=== PATIENT | female | born 1975 | race Caucasian/White ===

== ENCOUNTER 2016-07-21 09:27 | Emergency (ER) | payer BC, OTHER ==
[~2016-07-21] VITALS: Ht 165.1 cm; Wt 74.4 kg
[~2016-07-21 09:27] MED LIST: ADDERALL10 MG PO; ANTABUSE250 MG PO; ATIVAN2 MG PO; BUSPAR15 MG PO; BUSPAR5 MG PO; CAMPRAL333 MG PO; CLONIDINE HCL0.1 MG PO; DEPADE50 MG PO; FLEXERIL10 MG PO; Folvite PO; GEODON40 MG PO; HYDROXYZINE HCL25 MG PO; Habitrol,Nicoderm CQ TD; Librium PO; MEDERMA TP; MELOXICAM7.5 MG PO; MOTRIN600 MG PO; Naprosyn PO; Percocet 5/325,Endoc PO; Proventil,Ventolin H IH; THIAMINE HCL100 MG PO; TOPAMAX200 MG PO; TOPAMAX50 MG PO; TOPIRAMATE200 MG PO; Vyvanse PO; ZOLOFT100 MG PO; Zoloft PO
[2016-07-21 09:59] VITALS: BP 116/88
== END 2016-07-21 10:00 | disposition home or self-care (01) ==
LOC: EME → EDBD 09:27 → EME 10:00
DX: F10.129 Alcohol abuse with intoxication, unspecified (principal); F17.200 Nicotine dependence, unspecified, uncomplicated
CPT/HCPCS: 99281; 99283

== ENCOUNTER 2016-11-23 23:55 | Emergency (ER) | payer OTHER ==
[~2016-11-23] VITALS: Ht 157.5 cm; Wt 60.0 kg
[2016-11-24 01:03] VITALS: BP 120/81
== END 2016-11-24 01:03 | disposition home or self-care (01) ==
LOC: EME 23:55
DX: F10.129 Alcohol abuse with intoxication, unspecified (principal); F17.200 Nicotine dependence, unspecified, uncomplicated
CPT/HCPCS: 99281; 99283

== ENCOUNTER 2017-07-28 11:21 | Inpatient (IN) | payer OTHER ==
[~2017-07-28] VITALS: Ht 167.6 cm; Wt 72.3 kg
[2017-07-28 12:02] LABS: BASOPHIL (%) 0.3 % (0-1); EOSINOPHIL (%) 0.4 % (0-5); HEMATOCRIT 36.3 % (36.0-46.0); HEMOGLOBIN 11.5 G/DL (11.9-15.5); IMMATURE GRANULOCYTE (%) 0.2 % (0.0-0.7); LYMPHOCYTE (%) 17.8 % (15-42); LYMPHOCYTE COUNT 1.6 K/uL (1.0-2.8); MCH 25.2 PG (29.0-34.0); MCHC 31.7 G/DL (30.0-36.0); MCV 79.4 FL (83-99); MONOCYTE COUNT 0.6 K/uL (0-0.8); NEUTROPHIL (%) 74.3 % (45-76); NEUTROPHIL COUNT 6.8 K/uL (1.8-6.4); PLATELET COUNT 388 K/uL (156-360); RBC DIS.WIDTH-CV 17.9 % (11.8-14.6); RBC DIS.WIDTH-SD 50.8 % (39-53); RED BLOOD COUNT 4.57 M/uL (3.80-5.20); WHITE BLOOD COUNT 9.2 K/uL (4.1-10.2)
[2017-07-28 12:05] LABS: APPEARANCE SL.HAZY ((CLEAR)); BILIRUBIN NEGATIVE; BLOOD LARGE; COLOR YELLOW ((YELLOW)); GLUCOSE (STRIP) NEGATIVE; KETONES NEGATIVE; LEUKOCYTES NEGATIVE; NITRITE NEGATIVE; PROTEIN (STRIP) 30; SPECIFIC GRAVITY 1.018 (1.000-1.030)
[2017-07-28 12:12] LABS: CHLORIDE 104 mEq/L (99-109); POTASSIUM 3.8 mEq/L (3.7-5.4); SODIUM 137 mEq/L (136-147)
[2017-07-28 12:14] LABS: GLUCOSE 101 mg/dL (70-99)
[2017-07-28 12:17] LABS: SERUM ETHYL ALCOHOL < 10 mg/dL
[2017-07-28 12:18] LABS: CREATININE 0.8 mg/dL (0.6-1.3); GFR ESTIMATE (CALCULATED) > 59 mL/min/
[2017-07-28 12:19] LABS: UREA NITROGEN (BUN) 8 mg/dL (9-23)
[2017-07-28 12:27] LABS: QUANTITATIVE HCG < 4.0 MIU/ML
[2017-07-28 12:33] LABS: BACTERIA RARE /HPF; CALCIUM OXALATE CRYSTALS 4+ /HPF; EPITHELIAL CELLS 1+ /HPF; HYALINE CASTS 0-5 /LPF; MUCUS 3+ /LPF; RED BLOOD CELLS TNTC /HPF (0-5); WHITE BLOOD CELLS 0-5 /HPF (0-5)
[2017-07-28 12:49] LABS: AMPHETAMINE NEGATIVE (500 ng/mL); BARBITURATES NEGATIVE (200 ng/mL); BENZODIAZEPINES NEGATIVE (150 ng/mL); BUPRENORPHINE NEGATIVE (10 ng/mL); COCAINE NEGATIVE (150 ng/mL); METHADONE NEGATIVE (200 ng/mL); METHAMPHETAMINE NEGATIVE (500 ng/mL); OPIATES (MORPHINE) NEGATIVE (100 ng/mL); OXYCODONE NEGATIVE (100 ng/mL); PHENCYCLIDINE NEGATIVE (25 ng/mL); PROPOXYPHENE NEGATIVE (300 ng/mL); THC CANNABINOIDS NEGATIVE (50 ng/mL); TRICYCLIC ANTIDEPRESSANTS NEGATIVE (300 ng/mL)
[2017-07-28 16:26] VITALS: BP 160/79
[2017-07-28 16:49] VITALS: BP 160/79
[2017-07-28] MEDS ORDERED: MOTRIN800 MG PO (17:52)
[2017-07-29 08:29] VITALS: BP 111/51
[2017-07-29 15:31] VITALS: BP 107/57
[2017-07-30 07:52] VITALS: BP 123/57
[2017-07-30 16:37] VITALS: BP 133/62
[2017-07-31 08:05] VITALS: BP 95/62
[2017-07-31 16:04] VITALS: BP 120/64
[2017-08-01 07:55] VITALS: BP 94/52
[2017-08-01] MEDS ORDERED: Thiamine,Vitamin B1 PO (09:26)
[2017-08-01] MEDS ORDERED: HYDROXYZINE PAM25 MG PO (09:26)
[2017-08-01] MEDS ORDERED: FOLIC ACID1 MG PO (09:26)
[2017-08-01] MEDS ORDERED: CAMPRAL333 MG PO (09:26)
[2017-08-01] MEDS ORDERED: GEODON40 MG PO (09:26)
== END 2017-08-01 16:32 | disposition home or self-care (01) | DRG 881 ==
LOC: EME 11:21 → 1WEST 14:32 → EDOF 14:32 → ENRESERV 15:59 → 1WEST 16:11
PROVIDERS: Emergency Medicine
PROC: HZ2ZZZZ Detoxification Services for Substance Abuse Treatment (ICD-10-PCS; principal; 2017-07-28)
DX: F32.9 Major depressive disorder, single episode, unspecified (principal); F41.9 Anxiety disorder, unspecified; F10.24 Alcohol dependence with alcohol-induced mood disorder; F10.239 Alcohol dependence with withdrawal, unspecified; R45.851 Suicidal ideations; F17.200 Nicotine dependence, unspecified, uncomplicated; R41.9 Unspecified symptoms and signs involving cognitive functions and awareness; S06.9X0S Unspecified intracranial injury without loss of consciousness, sequela; Z91.19 Patient's noncompliance with other medical treatment and regimen
CPT/HCPCS: 80048; 81003; 84702; 85025; 90837; 97150 GO; 97165 GO; 99281; 99285; G0480; Q0177

== ENCOUNTER 2017-08-01 18:03 | Emergency (ER) | payer OTHER ==
[~2017-08-01] VITALS: Ht 165.1 cm; Wt 74.0 kg
[~2017-08-01 18:03] MED LIST changes: +FOLIC ACID1 MG PO; +HYDROXYZINE PAM25 MG PO; +MOTRIN800 MG PO; +Thiamine,Vitamin B1 PO
[2017-08-01 19:24] VITALS: BP 138/73
== END 2017-08-01 19:38 | disposition home or self-care (01) ==
LOC: EME 18:03
DX: F10.10 Alcohol abuse, uncomplicated (principal); F32.9 Major depressive disorder, single episode, unspecified; F17.200 Nicotine dependence, unspecified, uncomplicated; Z87.820 Personal history of traumatic brain injury
CPT/HCPCS: 99281; 99285; G0480

== ENCOUNTER 2017-08-03 01:34 | Emergency (ER) | payer OTHER ==
[~2017-08-03] VITALS: Ht 167.6 cm; Wt 73.8 kg
[2017-08-03 02:35] LABS: HEMATOCRIT 33.9 % (36.0-46.0); HEMOGLOBIN 10.7 G/DL (11.9-15.5); MCH 25.6 PG (29.0-34.0); MCHC 31.6 G/DL (30.0-36.0); MCV 81.1 FL (83-99); RBC DIS.WIDTH-CV 17.8 % (11.8-14.6); RED BLOOD COUNT 4.18 M/uL (3.80-5.20); WHITE BLOOD COUNT 5.2 K/uL (4.1-10.2)
[2017-08-03 02:35] LABS: APPEARANCE SL.HAZY ((CLEAR)); BILIRUBIN NEGATIVE; BLOOD NEGATIVE; COLOR YELLOW ((YELLOW)); GLUCOSE (STRIP) NEGATIVE; KETONES NEGATIVE; LEUKOCYTES NEGATIVE; NITRITE NEGATIVE; PROTEIN (STRIP) NEGATIVE; SPECIFIC GRAVITY 1.021 (1.000-1.030); UROBILINOGEN 0.2 MG/DL (0.2-1.0)
[2017-08-03 02:38] LABS: BACTERIA NONE SEEN /HPF; EPITHELIAL CELLS 2+ /HPF; HYALINE CASTS 0-5 /LPF; MUCUS TRACE /LPF; UCUL ADDED? NO; WHITE BLOOD CELLS 0-5 /HPF (0-5)
[2017-08-03 02:43] LABS: AMPHETAMINE NEGATIVE (500 ng/mL); BARBITURATES NEGATIVE (200 ng/mL); BENZODIAZEPINES PRESUMPTIVE POSITIVE (150 ng/mL); BUPRENORPHINE NEGATIVE (10 ng/mL); COCAINE NEGATIVE (150 ng/mL); METHADONE NEGATIVE (200 ng/mL); METHAMPHETAMINE NEGATIVE (500 ng/mL); OPIATES (MORPHINE) NEGATIVE (100 ng/mL); OXYCODONE NEGATIVE (100 ng/mL); PHENCYCLIDINE NEGATIVE (25 ng/mL); PROPOXYPHENE NEGATIVE (300 ng/mL); THC CANNABINOIDS NEGATIVE (50 ng/mL); TRICYCLIC ANTIDEPRESSANTS NEGATIVE (300 ng/mL)
[2017-08-03 02:43] LABS: ALBUMIN 4.1 g/dL (3.2-4.8); CHLORIDE 111 mEq/L (99-109); POTASSIUM 3.4 mEq/L (3.7-5.4); SODIUM 140 mEq/L (136-147)
[2017-08-03 02:45] LABS: GLUCOSE 100 mg/dL (70-99)
[2017-08-03 02:46] LABS: TOTAL PROTEIN 6.8 g/dL (6.4-8.3)
[2017-08-03 02:47] LABS: TOTAL BILIRUBIN 0.2 mg/dL (0.0-1.0)
[2017-08-03 02:48] LABS: SERUM ETHYL ALCOHOL < 10 mg/dL
[2017-08-03 02:49] LABS: CREATININE 0.8 mg/dL (0.6-1.3); GFR ESTIMATE (CALCULATED) > 59 mL/min/
[2017-08-03 02:50] LABS: ALKALINE PHOSPHATASE 74 IU/L (3-129)
[2017-08-03 02:51] LABS: AST (GOT) 18 IU/L (2-34); UREA NITROGEN (BUN) 9 mg/dL (9-23)
[2017-08-03 02:53] LABS: ACETAMINOPHEN (TYLENOL) < 10 mcg/mL (10-30); ALT (GPT) 14 IU/L (3-49); SALICYLATE < 5.0 MG/DL (15-30)
[2017-08-03 03:11] LABS: PLAT.SUFFICIENCY ADEQUATE
[2017-08-03 03:26] LABS: BENZODIAZEPINES, URINE SCREEN POSITIVE (200 ng/mL)
[2017-08-03 03:35] LABS: PLATELET COUNT 269 K/uL (156-360)
[2017-08-03 04:10] VITALS: BP 128/89
== END 2017-08-03 04:10 | disposition home or self-care (01) ==
LOC: EME → EDBD 01:34 → EME 01:34
PROVIDERS: Emergency Medicine
DX: F32.9 Major depressive disorder, single episode, unspecified (principal); D64.9 Anemia, unspecified; Z91.5 Personal history of self-harm; F17.200 Nicotine dependence, unspecified, uncomplicated
CPT/HCPCS: 80053; 81003; 84999; 85027; 90839; 99281; 99284; G0480